=== PATIENT | female | born 1990 ===

== ENCOUNTER 2022-07-06 18:28 | Inpatient (IN) | payer MEDICAID ==
[2022-07-06 20:06] LABS: CARBON DIOXIDE,CO2 24.3 mmol/L (21.0-32.0); POTASSIUM,K 3.5 mmol/L (3.5-5.1)
[2022-07-06 21:00] LABS: C. TRACHOMATIS BY PCR NOT DETECTED; N. GONORRHOEAE BY PCR NOT DETECTED
[2022-07-06] MEDS ORDERED: Piperacillin/Tazobactam 3.375 GM in Sodium Chloride 0.9% 50 ML IV ONE (23:52)
[2022-07-06] MEDS ORDERED: Sodium Chloride 0.9% 1,000 ML IV ONE (23:54)
[2022-07-07] MEDS ORDERED: Lactated Ringers 1,000 ML IV STA (00:07)
[2022-07-07] MEDS ORDERED: Famotidine 20 MG/2 ML SDV IVPUSH ONE (00:08)
[2022-07-07] MEDS ORDERED: Morphine 2 MG/ML SYRINGE IVPUSH PRN (02:29)
[2022-07-07] MEDS: Lactated Ringers 1,000 ML IV SCH ×2 (02:43→21:42)
[2022-07-07 07:01] LABS: CARBON DIOXIDE,CO2 22.8 mmol/L (21.0-32.0); POTASSIUM,K 3.1 mmol/L (3.5-5.1)
[2022-07-07] MEDS ORDERED: Potassium Chloride 100 ML IV SCH (07:30)
[2022-07-07] MEDS: Piperacillin/Tazobactam 3.375 GM in Sodium Chloride 0.9% 50 ML IV SCH ×3 (08:13→23:19)
[2022-07-07] MEDS ORDERED: NS + KCl 20mEq/L 1,000 ML IV SCH (08:45)
[2022-07-07] MEDS ORDERED: NS with KCl 40mEq 1,000 ML IV ONE (08:45)
[2022-07-07] MEDS: metroNIDAZOLE 250 MG Tab PO SCH ×2 (09:36→20:39)
[2022-07-07] MEDS ORDERED: Magnesium Sulfate/Water 4 GM in Premix Bag 1 BAG IV ONE (10:57)
[2022-07-08 06:28] LABS: CARBON DIOXIDE,CO2 22.6 mmol/L (21.0-32.0); POTASSIUM,K 3.6 mmol/L (3.5-5.1)
[2022-07-08] MEDS: Lactated Ringers 1,000 ML IV SCH (06:32)
[2022-07-08] MEDS: metroNIDAZOLE 250 MG Tab PO SCH (08:21)
[2022-07-08] MEDS: Piperacillin/Tazobactam 3.375 GM in Sodium Chloride 0.9% 50 ML IV SCH (08:22)
[2022-07-08] MEDS ORDERED: Magnesium Sulfate/D5W 1 GM/100 ML Premix Bag IV ONE (10:56)
[2022-07-08] MEDS ORDERED: Famotidine 20 MG/2 ML SDV IVPUSH PRN (10:57)
[2022-07-08] MEDS ORDERED: EPINEPHrine 1 MG/ML SDV IM PRN (10:57)
[2022-07-08] MEDS ORDERED: methylPREDNISolone Sodium Succinate 125 MG/2 ML SDV IVPUSH PRN (10:57)
[2022-07-08] MEDS ORDERED: diphenhydrAMINE 50 MG/ML SDV IVPUSH PRN (10:57)
[2022-07-08] MEDS ORDERED: Sodium Chloride 0.9% 10 ML Syringe FLUSH SCH (11:00)
[2022-07-08] MEDS ORDERED: Iron Sucrose Complex 200 MG in Sodium Chloride 0.9% 100 ML IV ONE (12:00)
[2022-07-09] MEDS ORDERED: Ferrous Sulfate 325 MG Tab PO SCH (08:00)
== END 2022-07-08 14:15 | DRG 832 ==
LOC: MW.ED 18:28 → MW.MS 23:41
PROVIDERS: ADMIT Student in an Organized Health Care Education/Training Program; ATTEND Student in an Organized Health Care Education/Training Program
PROC: 30233N1 Transfusion of Nonautologous Red Blood Cells into Peripheral Vein, Percutaneous Approach (ICD-10-PCS; principal; 2022-07-06)
DX: O99.011 Anemia complicating pregnancy, first trimester (principal); O98.811 Other maternal infectious and parasitic diseases complicating pregnancy, first trimester; Z3A.08 8 weeks gestation of pregnancy; Z87.891 Personal history of nicotine dependence; O99.891 Other specified diseases and conditions complicating pregnancy; R10.9 Unspecified abdominal pain; D72.829 Elevated white blood cell count, unspecified; Z20.822 Contact with and (suspected) exposure to COVID-19
CPT/HCPCS: 36415; 36430; 76700; 76700-26; 76801; 76801-26; 80048; 80305-QW; 81003; 82247; 82728; 83550; 83605; 83735; 84100; 84450; 84460; 84702; 85014; 85018; 85025; 86850; 86900; 86901; 86920; 87040; 87480; 87491; 87510; 87591; 87660; 99285; A9270-GY; J1756; J2543; J3475; J3480; J3490; J7030; J7120; P9016; U0002

== ENCOUNTER 2022-07-10 15:43 | Emergency (ER) | payer MEDICAID, OTHER ==
[2022-07-10] MEDS ORDERED: Ondansetron 4 MG Tab.DIS PO ONE (18:06)
== END 2022-07-10 18:21 | disposition home or self-care (01) ==
LOC: MW.ED 15:43
DX: O23.41 Unspecified infection of urinary tract in pregnancy, first trimester (principal); N39.0 Urinary tract infection, site not specified; O99.891 Other specified diseases and conditions complicating pregnancy; R11.0 Nausea; Z3A.08 8 weeks gestation of pregnancy
CPT/HCPCS: 81001; 81025; 87086; 99283; A9270

== ENCOUNTER 2022-07-15 22:15 | Emergency (ER) | payer MEDICAID, OTHER ==
[2022-07-15] MEDS ORDERED: Nitrofurantoin Monohydrate/Macrocrystalline 100 MG Cap PO ONE (23:19)
[2022-07-16 00:30] LABS: C. TRACHOMATIS BY PCR NOT DETECTED; N. GONORRHOEAE BY PCR NOT DETECTED
== END 2022-07-15 23:41 | disposition home or self-care (01) ==
LOC: MW.ED 22:15
DX: O99.891 Other specified diseases and conditions complicating pregnancy (principal); R10.9 Unspecified abdominal pain; Z3A.10 10 weeks gestation of pregnancy
CPT/HCPCS: 81001; 87086; 87491; 87591; 99283; A9270